=== PATIENT | male | born 1955 | race Caucasian/White ===

== ENCOUNTER 2018-04-05 19:43 | Emergency (ER) | payer BC ==
[2018-04-05] MEDS ORDERED: METHYLPREDNISOLONE SOD 40MG/VIAL IM ONE (20:06)
--- NOTE | 2018-04-05 20:12 | Emergency Department Record ---
History of Present Illness - General Chief complaint: Poison ernie/oak/sumac exposure Stated complaint: POINSON ERNIE Time Seen by Provider: 04/05/18 19:59 Source: Patient Mode of Arrival: Ambulatory Limitations: No limitations - History of Present Illness Initial comments: pt here for poison ernie on his r arm. complaint: Rash Onset/Timin -: Days(s) Hx Tetanus Toxoid Vaccination: Yes Location: RUE Severity: Mild Consistency: Getting worse Improves with: None Associated symptoms: Denies other symptoms Treatments Prior to Arrival: None - Related Data Home Medications Medication Instructions Recorded Confirmed Last Taken Aspirin [Aspirin EC] 81 mg PO DAILY 04/05/18 04/05/18 04/05/18 Atorvastatin Calcium 40 mg PO DAILY 04/05/18 04/05/18 04/05/18 Carvedilol [Coreg] 3.125 mg PO BID 04/05/18 04/05/18 04/05/18 Glipizide [Glipizide ER] 10 mg PO DAILY 04/05/18 04/05/18 04/05/18 Lisinopril/Hydrochlorothiazide 1 tab PO DAILY 04/05/18 04/05/18 04/05/18 [Lisinopril-Hctz 20-25 mg Tab] Metformin HCl 500 mg PO BID 04/05/18 04/05/18 04/05/18 Previous Rx's Medication Instructions Recorded Methylprednisolone [Medrol Dose 4 mg PO ASDIR #1 tab.ds.pk 04/05/18 Pack] Allergies Allergy/AdvReac Type Severity Reaction Status Date / Time acetaminophen [From Percocet] AdvReac HIVES Verified 04/05/18 19:50 codeine AdvReac HIVES Verified 04/05/18 19:50 oxycodone [From Percocet] AdvReac HIVES Verified 04/05/18 19:50 Travel Screening - Travel/Exposure Within Last 30 Days Have you traveled within the last 30 days?: No - Travel Symptoms Symptom Screening: None Review of Systems Reviewed: No additional complaints except as noted below Constitutional: Reports: As per HPI. Denies: Chills, Fever, Malaise, Night sweats, Weakness, Weight change Eyes: Reports: As per HPI. Denies: Eye discharge, Eye pain, Photophobia, Vision change ENT: Reports: As per HPI. Denies: Congestion, Dental pain, Ear pain, Epistaxis , Hearing loss, Throat pain Respiratory: Reports: As per HPI. Denies: Cough, Dyspnea, Hemoptysis, Stridor, Wheezes Cardiovascular: Reports: As per HPI. Denies: Arrhythmia, Chest pain, Dyspnea on exertion, Edema, Murmurs, Orthopnea, Palpitations, Paroxysmal nocturnal dyspnea, Rheumatic Fever, Syncope Endocrine: Reports: As per HPI. Denies: Fatigue, Heat or cold intolerance, Polydipsia, Polyuria Gastrointestinal: Reports: As per HPI. Denies: Abdominal pain, Constipation, Diarrhea, Hematemesis, Hematochezia, Melena, Nausea, Vomiting Genitourinary: Reports: As per HPI. Denies: Dysuria, Frequency, Hematuria, Incontinence, Retention, Testicular pain, Testicular mass, Urgency Musculoskeletal: Reports: As per HPI. Denies: Arthralgia, Back pain, Gout, Joint swelling, Myalgia, Neck pain Skin: Reports: As per HPI, Rash. Denies: Bruising, Change in color, Change in hair/nails, Lesions, Pruritus Neurological: Reports: As per HPI. Denies: Abnormal gait, Confusion, Headache, Numbness, Paresthesias, Seizure, Tingling, Tremors, Vertigo, Weakness Psychiatric: Reports: As per HPI. Denies: Anxiety, Auditory hallucinations, Depression, Homicidal thoughts, Suicidal thoughts, Visual hallucinations Hematological/Lymphatic: Reports: As per HPI. Denies: Anemia, Blood Clots, Easy bleeding, Easy bruising, Swollen glands Past Medical History - SOCIAL HISTORY Smoking Status: Former smoker Alcohol Use: None Drug Use: None - RESPIRATORY Hx Respiratory Disorders: No - CARDIOVASCULAR Hx Cardio Disorders: Yes Hx Chest Pain: Yes (1 stent) Hx Heart Attack: Yes - NEURO Hx Neuro Disorders: Yes Hx CVA: Yes - GI Hx GI Disorders: No - Hx Genitourinary Disorders: No - ENDOCRINE Hx Endocrine Disorders: Yes Hx Diabetes: Yes - MUSCULOSKELETAL Hx Musculoskeletal Disorders: No - PSYCH Hx Psych Problems: No - HEMATOLOGY/ONCOLOGY Hx Hematology/Oncology Disorders: No Family Medical History Any Significant Family History?: No Family Hx Comment (NOT TO BE USED IN PLACE OF ITEMS BELOW): denies Physical Exam - General General Appearance: Alert, Oriented x3, Cooperative, Mild distress - Head Head exam: Normal inspection - Eye Eye exam: Normal appearance, PERRL, EOMI Pupils: Normal accommodation - ENT ENT exam: Normal exam, Mucous membranes moist, Normal external ear exam, Normal orophraynx Ear exam: Normal external inspection. negative: External canal tenderness Nasal Exam: Normal inspection. negative: Discharge, Sinus tenderness Mouth exam: Normal external inspection, Tongue normal Teeth exam: Normal inspection. negative: Dental caries Throat exam: Normal inspection. negative: Tonsillar erythema, Tonsillar exudate - Neck Neck exam: Normal inspection, Full ROM. negative: Tenderness - Respiratory Respiratory exam: Normal lung sounds bilaterally. negative: Respiratory distress - Cardiovascular Cardiovascular Exam: Regular rate, Normal rhythm, Normal heart sounds - GI/Abdominal GI/Abdominal exam: Soft, Normal bowel sounds. negative: Tenderness - Rectal Rectal exam: Deferred - exam: Deferred - Extremities Extremities exam: Normal inspection, Full ROM, Normal capillary refill. negative: Tenderness - Back Back exam: Reports: Normal inspection, Full ROM. Denies: Muscle spasm, Rash noted, Tenderness - Neurological Neurological exam: Alert, CN II-XII intact, Normal gait, Oriented X3 - Psychiatric Psychiatric exam: Normal affect, Normal mood - Skin Skin exam: Dry, Intact, Normal color, Rash, Warm Distribution of rash: RUE Description of rash: Macular, Papular Course Vital Signs 04/05/18 19:54 Temperature 98.3 F Pulse Rate 93 H Respiratory 18 Rate Blood Pressure 118/82 Pulse Ox 97 Disposition Disposition: Discharge Clinical Impression: Poison ernie dermatitis Disposition: Home, Self-Care Condition: (1) Good Instructions: Poison Ernie (ED) Additional Instructions: follow up with family doctor. return sooner if worse. benadryl every 6 hours as needed. Prescriptions: Methylprednisolone [Medrol Dose Pack] 4 mg PO ASDIR #1 tab.ds.pk Quality - Quality Measures Quality Measures: N/A - Blood Pressure Screening Does Patient Have Any of the Following: No Blood Pressure Classification: Pre-Hypertensive BP Reading Systolic Measurement: 118 Diastolic Measurement: 82 Screening for High Blood Pressure: < Pre-Hypertensive BP, F/U Documented > [ [id number]] Pre-Hypertensive Follow-up Interventions: Follow-up with rescreen every year.
== END 2018-04-05 20:32 | disposition home or self-care (01) ==
LOC: ER 19:43
DX: L23.7 Allergic contact dermatitis due to plants, except food (principal)
CPT/HCPCS: 96372; 99283; J2920